=== PATIENT | female | born 1955 | race Caucasian/White ===

== ENCOUNTER 2018-06-03 12:26 | Emergency (ER) | payer MEDICAID ==
[2018-06-03 13:02] VITALS: RESP 18; BMI 31.2
[2018-06-03] MEDS ORDERED: Albuterol-Ipratrop 3 mg / 0.5 (3 ml) UD INH STA (13:20)
[2018-06-03] MEDS ORDERED: Sodium Chloride 0.9% 1,000 ML IV STA (13:23)
--- NOTE | 2018-06-03 13:25 | ED PDOC ---
HPI: General Adult Chief Complaint (Provider): COUGH History Per: Patient (62 Y/O FEMALE HERE WITH COUGH X 1 MONTH PRODUCTIVE. DENIES ANY FEVERS/CHILLS. NO ILL CONTACTS CURRENTLY. DENIES ANY MEDICAL ILLNESS.) <Brenda Valverde - Last Filed: 06/03/18 15:45> <Balta Fuentes III - Last Filed: 06/03/18 16:55> Time Seen by Provider: 06/03/18 13:24 Chief Complaint (Nursing): Cough, Cold, Congestion Past Medical History Reviewed: Historical Data, Nursing Documentation, Vital Signs Vital Signs: Last Vital Signs Temp 99.5 F 06/03/18 13:02 Pulse 97 H 06/03/18 13:02 Resp 18 06/03/18 13:02 BP 156/81 H 06/03/18 13:02 Pulse Ox 99 06/03/18 13:02 - Medical History PMH: Hypercholesterolemia Denies: HTN, Chronic Kidney Disease - Family History Family History: States: No Known Family Hx <Brenda Valverde - Last Filed: 06/03/18 15:45> Vital Signs: Last Vital Signs Temp 99.5 F 06/03/18 13:02 Pulse 97 H 06/03/18 13:02 Resp 18 06/03/18 13:02 BP 156/81 H 06/03/18 13:02 Pulse Ox 99 06/03/18 15:45 <Balta Fuentes III - Last Filed: 06/03/18 16:55> - Home Medications Home Medications: Ambulatory Orders Medication Instructions Recorded Acetaminophen/Hydrocodone Bi 1 tab PO DAILY #5 tab 03/13/16 [Vicodin 300 mg-5 mg] Ciprofloxacin [Cipro] 500 mg PO BID #14 tab 03/13/16 Tamsulosin [Flomax] 0.4 mg PO DAILY #14 cap 03/13/16 Albuterol HFA [Ventolin HFA 90 2 puff IH [id number] PRN #1 inh 06/03/18 mcg/actuation (8 g)] Azithromycin [Zithromax] 250 mg PO DAILY #6 tab 06/03/18 Ibuprofen [Motrin] 600 mg PO Q8 PRN #21 tab 06/03/18 Mask, Face [Nebulizer Aerosol Mask 1 dev XX PRN PRN #1 dev 06/03/18 Adult] guaiFENesin [mucINEX] 600 mg PO Q4 PRN #24 tab 06/03/18 - Allergies Allergies/Adverse Reactions: Allergies Allergy/AdvReac Type Severity Reaction Status Date / Time No Known Allergies Allergy Verified 06/03/18 12:59 Review of Systems ROS Statement: Except As Marked, All Systems Reviewed And Found Negative Respiratory: Positive for: Cough <Valverde,Setu B - Last Filed: 06/03/18 15:45> Physical Exam - Reviewed Nursing Documentation Reviewed: Yes Vital Signs Reviewed: Yes - Physical Exam Appears: Positive for: Well, Non-toxic, No Acute Distress Head Exam: Positive for: ATRAUMATIC, NORMAL INSPECTION, NORMOCEPHALIC Skin: Positive for: Normal Color, Warm, DRY Eye Exam: Positive for: EOMI, Normal appearance, PERRL ENT: Positive for: Normal ENT Inspection Neck: Positive for: Normal, Painless ROM Cardiovascular/Chest: Positive for: Regular Rate, Rhythm Respiratory: Positive for: Normal Breath Sounds, Rales (BIBASILAR) Gastrointestinal/Abdominal: Positive for: Normal Exam, Soft Back: Positive for: Normal Inspection Extremity: Positive for: Normal ROM Neurological/Psych: Positive for: Awake, Alert, Normal Tone <Valverde,Setu B - Last Filed: 06/03/18 15:45> - Laboratory Results Result Diagrams: 06/03/18 13:30 06/03/18 13:30 - ECG O2 Sat by Pulse Oximetry: 99 - Progress ED Course And Treament: cxr: hazy infiltrate LLL Duoneb x 1 dose Zithromax 500mg iv x 1 dose Rocephin 1 gm iv x 1 dose Seen and examined by Dr. Fuentes, ED attending as well. Condition: Unchanged <Valverde,Setu B - Last Filed: 06/03/18 15:45> - Laboratory Results Result Diagrams: 06/03/18 13:30 06/03/18 13:30 Lab Results: pO2 30 mm/Hg (30-55) 06/03/18 13:27 VBG pH 7.40 (7.32-7.43) 06/03/18 13:27 VBG pCO2 48 mmHg (40-60) 06/03/18 13:27 VBG HCO3 27.1 mmol/L 06/03/18 13:27 VBG Total CO2 31.2 mmol/L (22-28) H 06/03/18 13:27 VBG O2 Sat (Calc) 64.3 % (40-65) 06/03/18 13:27 VBG Base Excess 4.0 mmol/L (0.0-2.0) H 06/03/18 13:27 VBG Potassium 3.8 mmol/L (3.6-5.2) 06/03/18 13:27 Sodium 138.0 mmol/L (132-148) 06/03/18 13:27 Chloride 105.0 mmol/L (98-107) 06/03/18 13:27 Glucose 98 mg/dL (65-105) 06/03/18 13:27 Lactate 1.2 mmol/L (0.7-2.1) 06/03/18 13:27 FiO2 21.0 % 06/03/18 13:27 Troponin I < 0.0120 ng/mL (0.00-0.120) 06/03/18 13:30 NT-Pro-B Natriuret Pep 98.5 pg/ml (0-900) 06/03/18 13:30 Total Bilirubin 1.1 mg/dl (0.2-1.3) 06/03/18 13:30 AST 46 U/L (14-36) H 06/03/18 13:30 ALT 36 U/L (9-52) 06/03/18 13:30 Alkaline Phosphatase 169 U/L (38-126) H 06/03/18 13:30 Total Protein 8.7 G/DL (6.3-8.2) H 06/03/18 13:30 Albumin 4.3 g/dL (3.5-5.0) 06/03/18 13:30 Globulin 4.4 gm/dL (2.2-3.9) H 06/03/18 13:30 Albumin/Globulin Ratio 1.0 (1.0-2.1) 06/03/18 13:30 <Balta Fuentes III - Last Filed: 06/03/18 16:55> Medical Decision Making Medical Decision Making: pt seen/examined well appearing, normal resp pattern and speech symptoms ongoing for about a month labs/CXR reviewed trial Azithromycin and albuterol HFA with followup PMD next week for poss referral pulm if no improvement for LFTs <Balta Fuentes III - Last Filed: 06/03/18 16:55> Disposition - Patient ED Disposition Is Patient to be Admitted: No - Disposition Disposition: Routine/Home Disposition Time: 15:40 <Brenda Valverde - Last Filed: 06/03/18 15:45> <Balta Fuentes III - Last Filed: 06/03/18 16:55> - Clinical Impression Clinical Impression: Pneumonia - Disposition Condition: FAIR Prescriptions: Albuterol HFA [Ventolin HFA 90 mcg/actuation (8 g)] 2 puff IH [id number] PRN #1 inh PRN Reason: Cough Azithromycin [Zithromax] 250 mg PO DAILY #6 tab guaiFENesin [mucINEX] 600 mg PO Q4 PRN #24 tab PRN Reason: Cough Ibuprofen [Motrin] 600 mg PO Q8 PRN #21 tab PRN Reason: Pain, Moderate (4-7) Mask, Face [Nebulizer Aerosol Mask Adult] 1 dev XX PRN PRN #1 dev PRN Reason: Cough Instructions: Pneumonia in Adults
[2018-06-03 14:10] LABS: VENOUS BLOOD GAS PCO2 48 mmHg (40-60); VENOUS BLOOD GAS PO2 30 mm/Hg (30-55)
--- NOTE | 2018-06-03 14:10 | RAD ---
Date of service: 06/03/2018 HISTORY: ROUTINE COMPARISON: 03/12/2016 TECHNIQUE: Chest PA and lateral FINDINGS: LUNGS: No consolidation seen. The left infrahilar bronchovascular marking are borderline prominent-this is attributed to summation effects with the left heart soft tissues. PLEURA: No significant pleural effusion identified. No pneumothorax apparent. CARDIOVASCULAR: No aortic atherosclerotic calcification present. Probable top-normal heart size. Pulmonary vasculature also top normal in appearance OSSEOUS STRUCTURES: No significant abnormalities. VISUALIZED UPPER ABDOMEN: Normal. OTHER FINDINGS: None. IMPRESSION: No interval acute cardiopulmonary pathology noted.
[2018-06-03] MEDS ORDERED: cefTRIAXone (Rocephin) 1 gm Inj IVPB ONE (14:22)
[2018-06-03] MEDS ORDERED: Azithromycin 500 MG in Sodium Chloride 0.9% 250 ML IVPB STA (14:22)
[2018-06-03] MEDS ORDERED: Albuterol-Ipratrop 3 mg / 0.5 (3 ml) UD ONE (14:25)
[2018-06-03 14:31] LABS: BASO # 0.1 K/uL (0.0-0.2); BASO % 0.6 % (0.0-2.0); EOS # 0.2 K/uL (0.0-0.7); EOS % 1.5 % (0.0-4.0); HEMOGLOBIN 12.3 g/dL (12.0-16.0); LYMPH # 2.7 K/uL (1.0-4.3); MEAN CELL VOLUME 83.4 fl (81.0-99.0); MEAN CORPUSCULAR HEMOGLOBIN 27.4 pg (27.0-31.0); MEAN CORPUSCULAR HGB CONC 32.8 g/dL (33.0-37.0); MEAN PLATELET VOLUME 8.2 fl (7.2-11.7); MONO # 1.2 K/uL (0.0-0.8); MONO % 7.4 % (0.0-10.0); NEUT # 11.6 K/uL (1.8-7.0); NEUT % 73.5 % (50.0-75.0); NRBC % 0.3 % (0.0-0.0); RBC 4.5 Mil/uL (3.80-5.20); RED CELL DISTRIBUTION WIDTH 13.7 % (11.5-14.5); WHITE BLOOD COUNT 15.8 K/uL (4.8-10.8)
[2018-06-03 15:05] LABS: BLOOD UREA NITROGEN 14 mg/dl (7-17); GFR NON-AFRICAN AMERICAN > 60
[2018-06-03 15:06] LABS: ALBUMIN 4.3 g/dL (3.5-5.0); AST/SGOT 46 U/L (14-36); B-TYPE NATRIURETIC PEPTIDE 98.5 pg/ml (0-900); CALCIUM 10.2 mg/dL (8.4-10.2)
[2018-06-03 15:07] LABS: ALT/SGPT 36 U/L (9-52)
[2018-06-03] MEDS ORDERED: Azithromycin 500 MG IV IVPB ONE (15:59)
[2018-06-03 17:25] VITALS: BP 148/82; PULSE 87; TEMP 98.7; O2SAT 97
--- NOTE | 2018-06-03 17:31 | CARD ---
APPROVED REPORT Date of service: 06/03/2018 EKG Measurement Heart [id number] <Conclusion> Normal sinus rhythm Normal ECG
== END 2018-06-03 17:20 | disposition home or self-care (01) ==
LOC: H.ER 12:26
DX: J18.9 Pneumonia, unspecified organism (principal); E78.00 Pure hypercholesterolemia, unspecified
CPT/HCPCS: 71046; 80053; 82803; 83880; 84484; 85025; 87040; 87804; 93005; 96374; 96375; 99283; J0456; J0696; J7030; J7050